=== PATIENT | female | born 1980 | race Caucasian/White ===

== ENCOUNTER 2022-07-05 17:08 | Emergency (ER) | payer SELFPAY ==
[~2022-07-05] VITALS: Ht 165.1 cm; Wt 68.0 kg
--- NOTE | 2022-07-05 17:22 | ED Abdominal Pain ---
General Stated Complaint: RLQ PAIN Source of Information: Patient Exam Limitations: No Limitations History of Present Illness Date Seen by Provider: Jul 05, 2022 Time Seen by Provider: 17:17 Initial Comments Patient arrives to the emergency department with RLQ pain for the past three days. Reports that today she started running a fever. Was lifting something heavy the other day and felt something pop in her right lower quadrant. Is concerned that her appendix ruptured. Took Tylenol shortly prior to arrival due to the fever that she had at home. Denies dysuria. Reports that she saturated an entire box of super tampons in 24 hours. Denies current bleeding. Timing/Duration: 2-3 Days Severity/Quality: Moderate Location: RLQ Radiation: No Radiation Activities at Onset: Other (lifting) Modifying Factors: Improves With Analgesics, Improves With Lying down; Worsens With Movement, Worsens With Palpation; Improves With Resting Associated Symptoms: Fever/Chills, Nausea/Vomiting Allergies and Home Medications Allergies Coded Allergies: No Known Drug Allergies (Unverified , 07/05/22) Patient Home Medication List Home Medication List Reviewed: Yes Cephalexin (Cephalexin) 500 Mg Capsule, 500 MG PO BID Prescribed by: Lorraine Moya on 07/05/221918 Ondansetron (Ondansetron Odt) 4 Mg Tab.rapdis, 4 MG PO Q6H PRN for NAUSEA-1ST LINE Prescribed by: Lorraine Moya on 07/05/221918 Review of Systems Review of Systems Constitutional: chills; No diaphoresis, No dizziness; fever EENTM: No Symptoms Reported Respiratory: Denies Cough, Denies Shortness of Air, Denies Wheezing Cardiovascular: Denies Chest Pain, Denies Palpitations Gastrointestinal: Abdominal Pain; Denies Diarrhea; Nausea; Denies Vomiting Genitourinary: Denies Burning, Denies Discharge, Denies Frequency, Denies Flank Pain, Denies Hematuria; Other (vaginal bleeding few days ago) Musculoskeletal: No back pain, No joint swelling, No muscle pain Skin: No pruritus, No rash Psychiatric/Neurological: Denies Headache, Denies Numbness All Other Systems Reviewed Negative Unless Noted: Yes Past Alhhczz-Phwzpe-Lycwnn Hx Patient Social History Tobacco Use?: No Substance use?: No Alcohol Use?: No Family Medical History Reviewed Nursing Family Hx Physical Exam Vital Signs Vital Signs - First Documented 07/05/22 17:15 Temp 37.3 Pulse 113 Resp 24 B/P (MAP) 117/71 (86) Pulse Ox 99 Capillary Refill : Height/Weight/BMI Height: '" Weight: lbs. oz. kg; BMI Method: General Appearance: WD/WN, mild distress (anxious) Neck: non-tender, full range of motion, supple Respiratory: chest non-tender, lungs clear, normal breath sounds, no respiratory distress, no accessory muscle use Cardiovascular: tachycardia Gastrointestinal: normal bowel sounds, soft; No distended; guarding, tenderness (RLQ); No hernia, No mass Extremities: normal range of motion, non-tender, normal inspection Neurologic/Psychiatric: alert, normal mood/affect, oriented x 3 Skin: normal color, warm/dry Progress/Results/Core Measures Results/Orders Lab Results Laboratory Tests Test 07/05/22 17:25 07/05/22 17:43 Range/Units White Blood Count 21.0 H 4.3-11.0 10^3/uL Red Blood Count 3.76 L 3.80-5.11 10^6/uL Hemoglobin 11.5 11.5-16.0 g/dL Hematocrit 33 L 35-52 % Mean Corpuscular Volume 89 80-99 fL Mean Corpuscular Hemoglobin 31 25-34 pg Mean Corpuscular Hemoglobin Concent 34 32-36 g/dL Red Cell Distribution Width 12.7 10.0-14.5 % Platelet Count 411 H 130-400 10^3/uL Mean Platelet Volume 8.7 L 9.0-12.2 fL Immature Granulocyte % (Auto) 1 % Neutrophils (%) (Auto) 82 H 42-75 % Lymphocytes (%) (Auto) 10 L 12-44 % Monocytes (%) (Auto) 6 0-12 % Eosinophils (%) (Auto) 1 0-10 % Basophils (%) (Auto) 0 0-10 % Neutrophils # (Auto) 17.2 H 1.8-7.8 10^3/uL Lymphocytes # (Auto) 2.2 1.0-4.0 10^3/uL Monocytes # (Auto) 1.3 H 0.0-1.0 10^3/uL Eosinophils # (Auto) 0.3 0.0-0.3 10^3/uL Basophils # (Auto) 0.0 0.0-0.1 10^3/uL Immature Granulocyte # (Auto) 0.1 0.0-0.1 10^3/uL Neutrophils % (Manual) 78 % Lymphocytes % (Manual) 13 % Monocytes % (Manual) 9 % Blood Morphology Comment NORMAL Sodium Level 136 135-145 MMOL/L Potassium Level 3.1 L 3.6-5.0 MMOL/L Chloride Level 100 98-107 MMOL/L Carbon Dioxide Level 22 21-32 MMOL/L Anion Gap 14 5-14 MMOL/L Blood Urea Nitrogen 7 7-18 MG/DL Creatinine 0.71 0.60-1.30 MG/DL Estimat Glomerular Filtration Rate 110 BUN/Creatinine Ratio 10 Glucose Level 103 70-105 MG/DL Calcium Level 8.9 8.5-10.1 MG/DL Corrected Calcium 9.1 8.5-10.1 MG/DL Total Bilirubin 0.8 0.1-1.0 MG/DL Aspartate Amino Transf (AST/SGOT) 11 5-34 U/L Alanine Aminotransferase (ALT/SGPT) 13 0-55 U/L Alkaline Phosphatase 90 40-136 U/L Total Protein 6.8 6.4-8.2 GM/DL Albumin 3.8 3.2-4.5 GM/DL Lipase 15 8-78 U/L Serum Test, Qualitative NEGATIVE NEGATIVE Urine Color ORANGE Urine Clarity CLEAR Urine pH 8.0 5-9 Urine Specific [place] 1.020 1.016-1.022 Urine Protein 1+ H NEGATIVE Urine Glucose (UA) NEGATIVE NEGATIVE Urine Ketones TRACE H NEGATIVE Urine Nitrite NEGATIVE NEGATIVE Urine Bilirubin NEGATIVE NEGATIVE Urine Urobilinogen 0.2 < = 1.0 MG/DL Urine Leukocyte Esterase 2+ H NEGATIVE Urine RBC (Auto) 2+ H NEGATIVE Urine RBC NONE /HPF Urine WBC 25-50 H /HPF Urine Squamous Epithelial Cells 5-10 /HPF Urine Crystals NONE /LPF Urine Bacteria TRACE /HPF Urine Casts NONE /LPF Urine Mucus NEGATIVE /LPF Urine Culture Indicated YES Urine Opiates Screen NEGATIVE NEGATIVE Urine Oxycodone Screen NEGATIVE NEGATIVE Urine Methadone Screen NEGATIVE NEGATIVE Urine Propoxyphene Screen NEGATIVE NEGATIVE Urine Barbiturates Screen NEGATIVE NEGATIVE Ur Tricyclic Antidepressants Screen NEGATIVE NEGATIVE Urine Phencyclidine Screen NEGATIVE NEGATIVE Urine Amphetamines Screen POSITIVE H NEGATIVE Urine Methamphetamines Screen POSITIVE H NEGATIVE Urine Benzodiazepines Screen NEGATIVE NEGATIVE Urine Cocaine Screen NEGATIVE NEGATIVE Urine Cannabinoids Screen NEGATIVE NEGATIVE My Orders Orders - LORRAINE MOYA APRN Comprehensive Metabolic Panel (07/05/22 17:22) Lipase (07/05/22 17:22) Ua Culture If Indicated (07/05/22 17:22) Hcg,Qualitative Serum (07/05/22 17:22) Ed Iv/Invasive Line Start (07/05/22 17:22) Cbc With Automated Diff (07/05/22 17:22) Ct Abd/Pelv W (Appendicitis) (07/05/22 17:22) Iohexol Injection (Omnipaque 350 Mg/Ml 1 (07/05/22 17:30) Received Contrast (Hold Metformin- Contr (07/05/22 17:30) Ns (Ivpb) (Sodium Chloride 0.9% Ivpb Bag (07/05/22 17:30) Manual Differential (07/05/22 17:25) Urine Culture (07/05/22 17:43) Drug Screen Stat (Urine) (07/05/22 18:40) Ceftriaxone (Rocephin) (07/05/22 19:00) Ketorolac Injection (Toradol Injection) (07/05/22 19:15) Ondansetron Injection (Zofran Injectio (07/05/22 19:15) Medications Given in ED Current Medications Medications Dose Ordered Sig/Luis Carlos Route Start Time Stop Time Status Last Admin Dose Admin Ceftriaxone Sodium 2000 mg/ Sodium Chloride 50 ml @ 100 mls/hr ONCE ONCE IV 07/05/22 19:00 07/05/22 19:29 DC 07/05/22 19:14 100 MLS/HR Iohexol 100 ml ONCE ONCE IV 07/05/22 17:30 07/05/22 17:31 DC 07/05/22 18:24 78 ML Ketorolac Tromethamine 30 mg ONCE ONCE IVP 07/05/22 19:15 07/05/22 19:16 DC 07/05/22 19:14 30 MG Ondansetron HCl 4 mg ONCE ONCE IVP 07/05/22 19:15 07/05/22 19:16 DC 07/05/22 19:14 4 MG Sodium Chloride 100 ml ONCE ONCE IV 07/05/22 17:30 07/05/22 17:31 DC 07/05/22 18:24 80 ML Vital Signs/I&O 07/05/22 07/05/22 17:15 19:38 Temp 37.3 Pulse 113 90 Resp 24 B/P (MAP) 117/71 (86) 105/68 Pulse Ox 99 99 Progress Progress Note : Progress Note Patient arrives to department with right lower quadrant abdominal pain. Very anxious on arrival and tearful. Will check labs, urine and obtain CT scan. 191: Discussed with patient results of labs and testing. Instructed to increase potassium in diet. Will treat UTI with Cephalexin. Drug screen was positive for meth/amphetamines. She attributes that to the adderall that she takes. White count was 21,000. Likely in combination with UTI and gastroenteritis on CT scan. She was non toxic in appearance and agreeable to outpatient treatment. Reasons to return to the ER were discussed with patient in addition. Diagnostic Imaging Diagonstic Imaging: CT Plain Films/CT/US/NM/MRI: abdomen, pelvis Comments NAME: JEANINE ARRIETA [facility] REC#: [id number] PT STATUS: REG ER : 1980 PHYSICIAN: LORRAINE MOYA APRN ADMIT DATE: 07/05/22/ER Draft Date of Exam:07/05/22 CT ABD/PELV W (APPENDICITIS) INDICATION: Right lower quadrant abdominal pain TECHNIQUE: Multiple contiguous axial images were obtained through the abdomen and pelvis after the administration of intravenous contrast. All CT scans use one or more of the following dose optimizing techniques: automated exposure control, MA and/or KvP adjustment based on patient size and exam type or iterative reconstruction. There is no prior CT for comparison. The visualized portions of the lung bases are clear. There were no pleural fluid collections. There is no free intraperitoneal air. The liver shows no focal lesion. Gallbladder surgically absent. The spleen shows calcified granulomas but otherwise normal appearance. The adrenals and pancreas and kidneys are normal. There is no retroperitoneal adenopathy or mass. There is no ascites. There is no overt adnexal lesion. The appendix appears normal. There are diffuse fluid-filled loops of large and small bowel which may represent gastroenteritis. IMPRESSION: There are diffuse fluid-filled loops of large and small bowel which may be represent gastroenteritis. The appendix appears normal. There is no abscess or free fluid. There is no hydronephrosis. Patient had prior cholecystectomy. Dictated on workstation # [id number] Dict: 07/05/22 1835 Trans: 07/05/22 1840 [facility] [id number] Interpreted by: TIM HUERTA MD Electronically signed by: Departure Impression Primary Impression: Gastroenteritis Additional Impressions: UTI (urinary tract infection) Qualified Codes: N30.01 - Acute cystitis with hematuria Hypokalemia Disposition: HOME, SELF-CARE Condition: Stable Departure-Patient Inst. Decision time for Depature: 19:14 Referrals: NO,LOCAL PHYSICIAN (PCP/Family) Primary Care Physician Patient Instructions: Hypokalemia, Urinary Tract Infections in Adults, Viral Gastroenteritis, Adult (DC) Add. Discharge Instructions: 1. Home and rest. 2. Push fluids. 3. Alternate Tylenol/Ibuprofen as needed for pain. 4. Follow up with PCP as needed. 5. Zofran as needed for nausea. 6. Cephalexin as directed until finished. 7. Return here if worse or concerns. 8. Increase potassium in diet. Scripts Cephalexin (Cephalexin) 500 Mg Capsule 500 MG PO BID for 7 Days, #14 CAP 0 Refills Prov: LORRAINE MOYA APRN 07/05/22 Ondansetron (Ondansetron Odt) 4 Mg Tab.rapdis 4 MG PO Q6H PRN for NAUSEA-1ST LINE, #14 TAB Prov: LORRAINE MOYA APRN 07/05/22 LORRAINE MOYA APRN Jul 05, 2022 17:22
[2022-07-05] MEDS ORDERED: IOHEXOL 350 MG/ML 100 ML (OMNIPAQUE 350) VIAL IV ONE (17:30)
[2022-07-05] MEDS ORDERED: NS 100 ML (IVPB) BAG IV ONE (17:30)
[2022-07-05] MEDS ORDERED: HOLD METFORMIN - RECEIVED CONTRAST 20 ML VIAL IV SCH (17:30)
[2022-07-05 17:39] LABS: ALBUMIN 3.8 GM/DL (3.2-4.5); POTASSIUM 3.1 MMOL/L (3.6-5.0)
[2022-07-05 17:40] LABS: CALCIUM 8.9 MG/DL (8.5-10.1)
[2022-07-05 17:41] LABS: BASOPHILS % (AUTO) 0 % (0-10); EOSINOPHILS # (AUTO) 0.3 10^3/uL (0.0-0.3); EOSINOPHILS % (AUTO) 1 % (0-10); HEMATOCRIT 33 % (35-52); HEMOGLOBIN 11.5 g/dL (11.5-16.0); LYMPHOCYTES # (AUTO) 2.2 10^3/uL (1.0-4.0); LYMPHOCYTES % (AUTO) 10 % (12-44); MEAN CORPUSCULAR HEMOGLOBIN 31 pg (25-34); MEAN CORPUSCULAR HGB CONC 34 g/dL (32-36); MEAN CORPUSCULAR VOLUME 89 fL (80-99); MEAN PLATELET VOLUME 8.7 fL (9.0-12.2); MONOCYTES # (AUTO) 1.3 10^3/uL (0.0-1.0); MONOCYTES % (AUTO) 6 % (0-12); NEUTROPHILS # (AUTO) 17.2 10^3/uL (1.8-7.8); NEUTROPHILS % (AUTO) 82 % (42-75); PLATELET COUNT 411 10^3/uL (130-400)
[2022-07-05 17:42] LABS: TOTAL PROTEIN 6.8 GM/DL (6.4-8.2)
[2022-07-05 17:43] LABS: BILIRUBIN,TOTAL 0.8 MG/DL (0.1-1.0)
[2022-07-05 17:45] LABS: CREATININE SERUM 0.71 MG/DL (0.60-1.30)
[2022-07-05 17:51] LABS: BILIRUBIN,URINE NEGATIVE (NEGATIVE); CLARITY,URINE CLEAR; COLOR,URINE ORANGE; GLUCOSE, URINE (UA) NEGATIVE (NEGATIVE); KETONES,URINE TRACE (NEGATIVE); LEUKOCYTE ESTERASE ,URINE 2+ (NEGATIVE); NITRITE,URINE NEGATIVE (NEGATIVE); PROTEIN,URINE 1+ (NEGATIVE)
[2022-07-05 18:01] LABS: WBC,URINE 25-50 /HPF
[2022-07-05 18:02] LABS: BACTERIA,URINE TRACE /HPF
--- NOTE | 2022-07-05 18:40 | Diagnostic Imaging Report ---
INDICATION: Right lower quadrant abdominal pain TECHNIQUE: Multiple contiguous axial images were obtained through the abdomen and pelvis after the administration of intravenous contrast. All CT scans use one or more of the following dose optimizing techniques: automated exposure control, MA and/or KvP adjustment based on patient size and exam type or iterative reconstruction. There is no prior CT for comparison. The visualized portions of the lung bases are clear. There were no pleural fluid collections. There is no free intraperitoneal air. The liver shows no focal lesion. Gallbladder surgically absent. The spleen shows calcified granulomas but otherwise normal appearance. The adrenals and pancreas and kidneys are normal. There is no retroperitoneal adenopathy or mass. There is no ascites. There is no overt adnexal lesion. The appendix appears normal. There are diffuse fluid-filled loops of large and small bowel which may represent gastroenteritis. IMPRESSION: There are diffuse fluid-filled loops of large and small bowel which may be represent gastroenteritis. The appendix appears normal. There is no abscess or free fluid. There is no hydronephrosis. Patient had prior cholecystectomy. Dictated by: Dictated on workstation # [id number]
[2022-07-05 19:00] LABS: AMPHETAMINE SCREEN, URINE POSITIVE (NEGATIVE); BARBITURATE SCREEN URINE NEGATIVE (NEGATIVE); BENZODIAZEPINES SCREEN URINE NEGATIVE (NEGATIVE); CANNABINOID SCREEN, URINE NEGATIVE (NEGATIVE); COCAINE SCREEN URINE NEGATIVE (NEGATIVE); METHADONE STAT NEGATIVE (NEGATIVE); OPIATE SCREEN URINE NEGATIVE (NEGATIVE); OXYCODONE STAT NEGATIVE (NEGATIVE); PROPOXYPHENE STAT NEGATIVE (NEGATIVE); TRICYCLIC ANTIDEPRESSANTS SCRE NEGATIVE (NEGATIVE)
[2022-07-05] MEDS ORDERED: cefTRIAXone 2,000 MG in NS (IVPB) 50 ML IV ONE (19:00)
[2022-07-05 19:01] LABS: LYMPHOCYTES % (MANUAL) 13 %; MONOCYTES % (MANUAL) 9 %; NEUTROPHILS % (MANUAL) 78 %; RBC MORPH NORMAL
[2022-07-05] MEDS ORDERED: KETOROLAC 30 MG/ML VIAL IVP ONE (19:15)
[2022-07-05] MEDS ORDERED: ONDANSETRON 4 MG/2 ML (SDV) Z0FRAN IVP ONE (19:15)
[2022-07-05] MEDS ORDERED: ONDA4TAB11 PO (19:19)
[2022-07-05] MEDS ORDERED: CEPH500C PO (19:19)
[2022-07-05 19:38] VITALS: BP 105/68
== END 2022-07-05 19:40 | disposition home or self-care (01) ==
LOC: ER 17:11
DX: K52.9 Noninfective gastroenteritis and colitis, unspecified (principal); N39.0 Urinary tract infection, site not specified; E87.6 Hypokalemia; Z28.310 Unvaccinated for COVID-19
CPT/HCPCS: 36415; 74177; 80053; 80306; 81000; 83690; 84703; 85007; 85027; 87088